=== PATIENT | female | born 1980 | race Caucasian/White ===

== ENCOUNTER → 2022-12-03 09:40 | Outpatient (CLI) | payer OTHER, SELFPAY ==
--- NOTE | ~2022-12-03 | MM_ITS ---
EXAMINATION: MM screening danya BI w socrates HISTORY: Screening TECHNIQUE: Craniocaudal and mediolateral oblique 3-D tomosynthesis images were obtained and synthetic 2-D images were generated. CAD analysis was submitted and interpreted. COMPARISON: No prior mammogram is available for comparison at this institution. BREAST PARENCHYMAL COMPOSITION: There are scattered areas of fibroglandular density. FINDINGS: There are focal asymmetries in the upper inner quadrant of the left breast. There are no joy spicious masses, calcifications or architectural distortion in the right breast to suggest malignancy . IMPRESSION: 1. Left breast asymmetries, upper inner quadrant. 2. Additional mammographic views and possible breast ultrasound are recommended. BI-RADS Category 0: Incomplete: Needs additional imaging evaluation. Reviewed, dictated and finalized at location A. ILE TECH IMPRESSION: 1. Left breast asymmetries, upper inner quadrant. 2. Additional mammographic views and possible breast ultrasound are recommended . BI-RADS Category 0: Incomplete: Needs additional imaging evaluation.
== END ==
PROVIDERS: PCP Physician Assistant; Visit Provider Obstetrics & Gynecology Gynecologic Oncology
DX: Z12.31 Encounter for screening mammogram for malignant neoplasm of breast (principal); N64.89 Other specified disorders of breast
CPT/HCPCS: 77063; 77067

== ENCOUNTER → 2022-12-22 09:39 | Outpatient (CLI) | payer OTHER, SELFPAY ==
--- NOTE | ~2022-12-22 | MMUS_ITS ---
EXAMINATION: MM diagnostic danya LT w socrates, US breast LT limited HISTORY: Left breast mass TECHNIQUE: Additional 3-D tomosynthesis images of the left breast were performed and synthetic 2-D im ages were generated. CAD analysis was submitted and interpreted. High resolution Limited left breast ultrasound was performed. COMPARISON: 12/03/2022 BREAST PARENCHYMAL COMPOSITION: Breast composed of scattered areas of fibroglandular density FINDINGS: MAMMOGRAPHIC FINDINGS: There is a mass in the upper inner quadrant of the left breast which is partially obscured by fibrogl andular tissue. ULTRASOUND: Limited left breast ultrasound: At 9:00, 4 cm from the nipple there is an irregular shaped hypoechoic mass with some angular margins and internal vascularity measuring 7 x 6 x 5 mm. Antiparallel configu ration. There is posterior shadowing. This corresponds to the area of mammographic concern. IMPRESSION: 1. Irregular shaped 7 mm left breast mass at 9:00, 4 cm from the nipple. 2. Ultrasound-guided left breast biopsy recommended. BI-RADS category 4, suspicious findings. Reviewed, dictated and finalized at location A. O SPECIALIST IMPRESSION: 1. Irregular shaped 7 mm left breast mass at 9:00, 4 cm from the nipple. 2. Ultrasound-guided left breast biopsy recommended. BI-RADS category 4, suspicious findings.
== END ==
PROVIDERS: PCP Physician Assistant; Visit Provider Obstetrics & Gynecology Gynecologic Oncology
DX: N63.22 Unspecified lump in the left breast, upper inner quadrant (principal)
CPT/HCPCS: 76642; 77061; 77065; G0279

== ENCOUNTER 2023-01-06 09:38 | Outpatient (CLI) | payer OTHER, SELFPAY ==
--- NOTE | ~2023-01-06 | MMUS_ITS ---
EXAMINATION: US GUIDED NEEDLE BIOPSY DATE: 01/06/2023 11:03 ATOMIZER ASSEMBLER INDICATION: 9:00 irregular hypoechoic solid lesion with angular margins reported on 12/22/2022 limited left breast ultrasound examination TECHNIQUE AND FINDINGS: The risks and potential benefits of the procedure were discussed with the patient, and written inform ed consent was obtained. Timeout procedure was performed. After sterile preparation of the left breas t, 1% lidocaine was utilized for local anesthesia. A 14G spring-loaded biopsy gun needle was advanced to the edge of the region of interest from a media l approach utilizing sonographic guidance. A total of 4 tissue core samples were obtained through th e lesion. An Inrad tissue marker clip was then placed at the biopsy site. Hemostasis was achieved. A sterile bandage was applied. The patient tolerated procedure well and there was no evidence of immediate complication. The patien t was given verbal instructions prior to departing from the department. A two view mammogram was perf ormed to document tissue marker clip placement. The tissue samples were submitted to surgical patholo gy for histologic analysis. IMPRESSION: 1. Successful ultrasound guided biopsy of left 9:00 breast mass with biopsy marker placement. Please refer to pathology report for histologic analysis. Reviewed, dictated and finalized at Location A. Reviewed, dictated and finalized at location A. IZER ASSEMBLER IMPRESSION: 1. Successful ultrasound guided biopsy of left 9:00 breast mass with biopsy ma rker placement. Please refer to pathology report for histologic analysis.
== END 2023-01-06 09:39 | disposition home or self-care (01) ==
LOC: ANHIMG 09:39
PROVIDERS: PCP Physician Assistant; Visit Provider Surgery
DX: R92.8 Other abnormal and inconclusive findings on diagnostic imaging of breast (principal); N63.20 Unspecified lump in the left breast, unspecified quadrant; D24.2 Benign neoplasm of left breast
CPT/HCPCS: 19083; 88305; A4648

== ENCOUNTER → 2023-10-12 11:32 | Outpatient (CLI) | payer OTHER, SELFPAY ==
--- NOTE | ~2023-10-12 | US_ITS ---
EXAMINATION: US transvaginal DATE: 10/12/2023 12:31 INDICATION: Abnormal uterine bleeding Comparison:No prior studies for comparison. TECHNIQUE: Multiple endovaginal sonographic images of the pelvis performed. FINDINGS: The uterus measures 9 x 4 x 4.6 cm. There are uterine fibroids, largest located anteriorly measuring 10 mm. The endometrial complex measures 11 mm. The ovaries are not visualized. No adnexal masses. There is no free fluid in the pelvis. There are n o abnormal masses seen on either side. IMPRESSION: 1. Small uterine fibroids, largest measuring 1 cm anteriorly. Reviewed, dictated and finalized at location L. ER SKATE ASSEMBLER
== END ==
PROVIDERS: PCP Obstetrics & Gynecology Gynecologic Oncology; Visit Provider Obstetrics & Gynecology Gynecologic Oncology
DX: N93.9 Abnormal uterine and vaginal bleeding, unspecified (principal); N95.1 Menopausal and female climacteric states; D25.9 Leiomyoma of uterus, unspecified
CPT/HCPCS: 76830

== ENCOUNTER 2025-05-01 08:19 | Outpatient (CLI) | payer OTHER, SELFPAY ==
--- NOTE | ~2025-05-01 | NM_ITS ---
EXAM: NM gastric emptying study DATE: 05/01/2025 14:04 CDT INDICATION: Gastroesophageal reflux disease TECHNIQUE: A gastric emptying study was performed using the methodology of Cait ALVAREZ, et al. J Nucl Med 2007; 48:568-572. The patient was given a meal consisting of 2 scrambled eggs labeled with 1 mCi Tc-99m sulfur colloid, 2 slices of toast, two packages of jam, and approximately 120 mL of water. Si multaneous anterior and posterior 1-min images of the abdomen were obtained with the patient supine a t multiple time points over a total period of 4 hours. The geometric mean of anterior and posterior v iews was determined, and the percentage retention was calculated for each time point. COMPARISON: None. FINDINGS: Gastric retention of the radiotracer-labeled meal was 76%, 70%, and 40% at the 1-hour, 2-h our, and 4-hour time points, respectively. With this technique, apparent rapid gastric emptying is joy ggested by <30% gastric retention at 1 hour. Delayed gastric emptying is defined by gastric retention of >90% at 1 hour, >60% retention at 2 hours, or >10% retention at 4 hours. IMPRESSION: 1. Delayed gastric emptying. Reviewed, dictated and finalized at location B.
--- OUTSIDE RECORDS SUMMARY | 2025-05-01 08:32 | XMS_ITS | Clinical Summary ---
Author Organization [facility] Address [address] [place], [address] [address] Phone Care Team Providers Care Master Automotive Glass Technician Name Role Phone Nico Rudd Primary Care Provider [phone] Keturah Good APRN, STARTING SHEET TANK OPERATOR Unavailable Medications QUEtiapine (SEROQUEL XR) 200 MG TABLET SR 24 HR Take 200 mg by mouth daily. 07/14/2023 Active omeprazole (PriLOSEC) 40 MG CAPSULE DELAYED RELEASEIndicatio ns:Gastroesophag eal reflux disease, unspecified whether esophagitis present Take 1 Capsule by mouth daily. 90 Capsule 3 07/22/2023 Active sucralfate (CARAFATE) 1 GM TabletIndication s:Gastroesophage al reflux disease, unspecified whether esophagitis present TAKE 1 TABLET BY MOUTH THREE TIMES A DAY 90 Tablet 1 06/12/2024 Active Active Problems No known active problems Social History Tobacco Use Types Packs/Day Years Used Date Smoking Tobacco: Every Day Cigarettes Smokeless Tobacco: Never Tobacco Cessation:Ready to Q uit: No; Counseling Given: Yes Alcohol Use Standard Drinks/Week Comments Yes 0 (1 standard drink = 0.6 oz pur e alcohol) social Sexually Active Control Partners Comments Yes Male Comments Unknown Sex and Gender Information Value Date Recorded Sex Assigned at Not on file Legal Sex Female 3:24 PM CDT Gender Identity Not on file Sexual Orientation Not on file Last Filed Vital Signs Vital Sign Reading Time Taken Comments Blood Pressure 122/78 07/22/2023 1:45 PM CDT Pulse 94 07/22/2023 1:45 PM CDT Temperature 36.6 C (97.8 F) 07/22/2023 1:45 PM CDT Respiratory Rate 16 07/22/2023 1:45 PM CDT Oxygen Saturation 99% 07/22/2023 1:45 PM CDT Inhaled Oxygen Concentration - - Weight 95 kg (209 lb 6.4 oz) 07/22/2023 1:45 PM CDT Height 157.5 cm (5' 2) 07/22/2023 1:45 PM CDT Body Mass Index 38.3 07/22/2023 1:45 PM CDT Plan of Treatment Health Maintenance Due Date Last Done Comments Hepatitis C Virus (HCV) Screening 1978 TdaP Immunization 1978 Hepatitis B Immunization (1 of 3 - 19+ 3-dose series) 1997 Pneumococcal Immunization Co mbined (1 of 2 - PCV) 1997 Pap Smear 1999 Cervical Cancer Screening (CCS) 2008 HPV/Cotest 2008 Discussion re Starting/Frequ ency of Mammograms 2018 Colonoscopy 2023 Colorectal Cancer Screening 2023 Influenza Immunization (#1) 2024 SARS-COV-2 Immunization ( season) 2024 Respiratory Syncytial Virus (RSV) Immunization (Adult) (1 - 1-dose 75+ series) 2053 Meningococcal Immunization (ACWY) Aged Out No longer eligible based on patient's age to complete this topic Rotavirus Immunization Aged Out No lo nger eligible based on patient's age to complete this topic Insurance [facility]ICARE C [facility] [place] [place] Care Teams Master Automotive Glass Technician Relationship Specialty Start Date End Date Nico Rudd, [facility] [address] [place] [address] PCP - General Physician Nursing Home Social Worker 07/19/23 Keutrah Good APRN, STARTING SHEET TANK OPERATOR [address] [place] [address] Nurse Practitioner Advanced Practice Nurse 07/22/23
== END 2025-05-01 08:20 | disposition home or self-care (01) ==
PROVIDERS: PCP Physician Assistant; Visit Provider Nurse Practitioner Family
DX: K21.9 Gastro-esophageal reflux disease without esophagitis (principal); R11.14 Bilious vomiting
CPT/HCPCS: 78264; A9541

== ENCOUNTER 2025-05-29 12:37 | Emergency (ER) | payer OTHER, SELFPAY ==
--- NOTE | ~2025-05-29 | XR_ITS ---
EXAM/PROCEDURE: XR chest 2V - 05/29/2025 15:27 CDT HISTORY: 45 years old Female with balance issues/feeling dizzy TECHNIQUE: Two view(s) of the chest. COMPARISON: None available. FINDINGS: LUNGS/ PLEURA: Scattered areas of bilateral airspace disease. No pneumothorax or pleural effusion. HEART/ MEDIASTINUM: Heart appears normal in size. BONES: No acute osseous abnormality. OTHER: Visualized upper abdomen is unremarkable. IMPRESSION: Bilateral airspace disease can represent pneumonia in appropriate clinical settings. Clinical correla tion is recommended. Short interval follow-up chest radiograph is recommended after appropriate clini hi therapy. Reviewed, dictated and finalized at location A. IMPRESSION: Bilateral airspace disease can represent pneumonia in appropriate clinical sett ings. Clinical correlation is recommended. Short interval follow-up chest radio graph is recommended after appropriate clinical therapy.
--- NOTE | ~2025-05-29 | CT_ITS ---
EXAM: CTA brain carotid - 05/29/2025 14:35 CDT History: 45 years old Female with Balance and vision changes TECHNIQUE: CT scan of the head without contrast. Subsequently CTA of the head and neck with intraveno us contrast was performed. 3-D reconstructed images of cerebral artery circulation were generated on a [id number] workstation. Automatic exposure control was used for this study. CONTRAST: 100 cc of Omnipaque 350 was used for this study COMPARISON: None available. FINDINGS: CT HEAD WITHOUT CONTRAST: BRAIN PARENCHYMA: [place]-white differentiation is maintained.No intra-axial hemorrhage or midline shift . No evidence of intraaxial mass. VENTRICLES/ EXTRA-AXIAL SPACES: No extra-axial hemorrhage or fluid collection. No evidence of extra-a xial mass. No hydrocephalus. CALVARIUM AND SINUSES: No calvarial fracture. The visualized sinuses and mastoid air cells are clear . CTA: Normal branching pattern of the thoracic aorta. Great vessels of the neck are patent. RIGHT ANTERIOR CIRCULATION: Innominate and right common carotid artery is normal in caliber. No significant stenosis at the carotid bifurcation by NASCET criteria. Cervical segment of the internal carotid artery is normal in caliber. Cavernous and supraclinoid segm ents of the internal carotid artery patent. M1 segment and middle cerebral artery bifurcation are unremarkable. A1 segment, anterior communicating artery complex and A2 segment are within normal limits. LEFT ANTERIOR CIRCULATION: Left common carotid artery is normal in caliber. No significant stenosis at the carotid bifurcation by NASCET criteria. Cervical segment of the internal carotid artery is normal in caliber. Cavernous and supraclinoid segm ents of the internal carotid artery patent. M1 segment and middle cerebral artery bifurcation are unremarkable. A1 segment, anterior communicating artery complex and A2 segment are within normal limits. POSTERIOR CIRCULATION: Vertebral arteries are codominant and patent throughout the neck. Intradural vertebral arteries are normal in caliber and terminate as the basilar artery. Basilar artery is normal in caliber. Bilateral P1 segments are hypoplastic, with persistent origin of the posterior cerebral artery from posterior communicating artery. . OTHER: Scattered areas of groundglass/airspace opacities in both lungs, concerning for pneumonia. IMPRESSION: 1. No evidence for acute intracranial hemorrhage or acute ischemic infarct on non-contrast CT. 2. Unremarkable CTA of the head and neck. No evidence of cerebral artery aneurysm, stenosis or mass . 3. Scattered areas of groundglass/airspace opacities in both lungs, compatible with pneumonia. Short -term follow-up chest radiograph is recommended after appropriate clinical therapy. Reviewed, dictated and finalized at location A. IMPRESSION: 1. No evidence for acute intracranial hemorrhage or acute ischemic infarct on non-contrast CT. 2. Unremarkable CTA of the head and neck. No evidence of cerebral artery aneu rysm, stenosis or mass. 3. Scattered areas of groundglass/airspace opacities in both lungs, compatible with pneumonia. Short-term follow-up chest radiograph is recommended after shannan ropriate clinical therapy.
--- OUTSIDE RECORDS SUMMARY | 2025-05-29 12:39 | XMS_ITS | Clinical Summary ---
Author Organization [facility] Address [address], [address] [address] Phone Care Team Providers Care Vegetable Sorter Name Role Phone Nico Rudd Primary Care Provider [phone] Keturah Good APRN, SERVICENOW ADMINISTRATOR DEVELOPER Unavailable Medications QUEtiapine (SEROQUEL XR) 200 MG [...] to complete this topic Insurance MEDICARE C [facility] [place] Care Teams Vegetable Sorter Relationship Specialty Start Date End Date Nico Rudd, [facility] [address] [place] [address] PCP - General Physician Real Estate Paralegal 07/19/23 Keturah Good APRN, SERVICENOW ADMINISTRATOR DEVELOPER [address] [place] [address] Nurse Practitioner Advanced Practice Nurse 07/22/23
[2025-05-29 12:42] VITALS: BP 162/114; PULSE 102; RESP 18; TEMP 36.6; O2SAT 96; O2SAT 99
--- NOTE | 2025-05-29 12:45 | ECG_ITS ---
Test Date: 2025-05-29 12:50:50 Measurements Intervals [place] Rate: 91 P: 53 NC: 179 QRS: 68 QRSD: 82 T: 53 QT: 402 QTc: 497 Interpretive Statements SINUS RHYTHM WITHIN NORMAL LIMITS No previous ECG available for comparison Electronically Signed On 05-30-2025 07:35:57 CDT by Arcadio Ramirez M.D.
[2025-05-29 13:00] LABS: Hematocrit 38.6 % (37.0-47.0); Hemoglobin 12.7 g/dL (12.0-15.0); Immature Granulocyte Percent A 0.5 % (0-0.5); Lymphocytes Absolute Auto 1.39 K/mm3 (0.9-3.2); Mean Corpuscular HGB Conc 32.9 g/dl (32-36); Mean Corpuscular Hemoglobin 31.8 pg (26-34); Mean Corpuscular Volume 96.5 fl (80-100); Nucleated Red Blood Cells Absolute Auto 0.000 K/mm3 (0.0-0.012); Nucleated Red Blood Cells Perc 0.0 % (0.0-0.2); Platelet Count Result 275 k/mm3 (150-375); Red Blood Count 4.00 M/mm3 (4.2-5.4); White Blood Count 8.7 K/mm3 (4.5-10.0)
[2025-05-29 13:13] VITALS: BP 161/100; PULSE 97; RESP 20; O2SAT 99
[2025-05-29 13:16] LABS: Alanine Aminotransferase 104 U/L (6-35); Albumin Level 4.3 g/dL (3.5-5.1); Alkaline Phosphatase 97 U/L (38-126); Anion Gap 12 mmol/L (4-12); Aspartate Amino Transferase 121 U/L (14-36); Bilirubin,Total 0.6 mg/dL (0.2-1.3); Blood Urea Nitrogen 8 mg/dL (7-17); Calcium 9.4 mg/dL (8.4-10.2); Carbon Dioxide 25 mmol/L (22-30); Chloride 99 mmol/L (98-107); Estimated CRCL calculation 124 ml/min; Estimated Glomerular Filt Rate > 60; Glucose 122 mg/dL (65-110); Potassium 3.4 mmol/L (3.4-5.0); Sodium 136 mmol/L (137-145); Total Protein 7.9 g/dL (6.3-8.2)
[2025-05-29 13:24] LABS: INR 1.1; Prothrombin Time 13.7 Seconds (11.1-14.7)
[2025-05-29 13:25] LABS: Partial Thromboplastin Time 27.1 Seconds (22.3-36.8)
[2025-05-29 13:27] LABS: Troponin I < 0.012 ng/mL (0.000-0.034)
[2025-05-29 14:07] VITALS: BP 144/96; PULSE 90; RESP 18; TEMP 36.9; O2SAT 99
--- OUTSIDE RECORDS SUMMARY | 2025-05-29 14:46 | XMS_ITS | Clinical Summary ---
Author Organization [facility] Address [address], [address] [address] Phone Care Team Providers Care Warehouse Logistics Coordinator Name Role Phone Nico Rudd Primary Care Provider [phone] Keturah Good APRN, FAGOTING MACHINE OPERATOR Unavailable Medications QUEtiapine (SEROQUEL XR) 200 [...] to complete this topic Insurance [facility]IC[facility] [place] Care Teams Warehouse Logistics Coordinator Relationship Specialty Start Date End Date Nico Rudd, [facility] [address] [place] [address] PCP - General Physician Operations Intelligence 07/19/23 Keturah Good APRN, FAGOTING MACHINE OPERATOR [address] [place] [address] Nurse Practitioner Advanced Practice Nurse 07/22/23
[2025-05-29 15:01] VITALS: BP 143/97; PULSE 67; RESP 18; TEMP 36.6; O2SAT 98
--- NOTE | 2025-05-29 15:27 | ED_ITS ---
HPI - General Adult General Chief complaint: Neuro Symptoms/Deficit Stated complaint: sent by PCP, possible CVA; shaking Time Seen by Provider: 05/29/25 14:26 History of Present Illness HPI narrative: 45-year-old female present to the emergency department for evaluation for increased psychomotor agitation and twitching. Patient does take Seroquel, hydroxyzine and clomipramine. Patient began having an anxiety attack on 05/22 and did take increase hydroxyzine. Patient states she has had increased psychomotor agitation and shakiness Related Data Home Medications ?Medication ?Instructions ?Recorded ?Confirmed ?Last Taken ?Type quetiapine 200 mg tablet (Seroquel) 200 mg PO QHS 12/25/22 04/02/25 Unknown History prazosin 2 mg capsule 2 mg PO QHS 12/29/22 04/02/25 Unknown History Allergies Allergy/AdvReac Type Severity Reaction Status Date / Time No Known Allergies Allergy Verified 05/29/25 12:46 Review of Systems 2 Review of Systems: All systems reviewed & are unremarkable except as noted in HPI and below PMFSH Surgical History Surgical History H/O tubal ligation History of tonsillectomy History of mandibular surgery Elective History of surgery on arm Family History Family History Father Renal failure Diabetes mellitus Heart disease Mother Diabetes mellitus Heart disease Sibling Heart disease Unknown Cerebrovascular accident Hypertension Breast cancer Lung cancer Kidney disease Grandparent Breast cancer Social History Social History Social History: caffeine use: drinks tea & soda daily Smoking packs per day: 1 Smoking cigarettes per day: 20.0 Years smoked: 26 Smoking pack-years: 26.00 Smoking status: Current every day smoker Tobacco type: cigarettes Alcohol intake: current Alcohol use details: whiskey & vodka daily Additional living arrangements comments: Additional occupation/education comments: homemaker Exam 2 Narrative: APPEARANCE: Well appearing, no pain, no distress, well-nourished. HEAD: normocephalic, atraumatic. EYES: PERRLA/EOMI, conjunctivae clear. NOSE: Normal no drainage EARS:TMS clear with good light reflex. THROAT: Pharynx clear, no exudate. NECK: Supple. No adenopathy, no masses. RESPIRATORY: Airway patent, respirations nonlabored. Clear to auscultation bilaterally, no rales, rhonchi, wheezing. CARDIOVASCULAR: Regular rate and rhythm without murmurs rubs or gallops. ABDOMINAL: Soft, nontender, nondistended, normal bowel sounds MUSCULOSKELETAL: Moves all extremities. Strength/ROM intact, No edema, No calf tenderness. NEURO: Alert. Mild tremor Course Vital Signs Vital signs: Vital Signs Temperature 97.8 F 05/29/25 12:42 Pulse Rate 102 H 05/29/25 12:42 Respiratory Rate 18 05/29/25 12:42 Blood Pressure 162/114 H 05/29/25 12:42 Pulse Oximetry 99 05/29/25 12:42 Oxygen Delivery Room Air 05/29/25 12:42 Temperature 97.8 F 05/29/25 15:01 Pulse Rate 90 05/29/25 17:01 Respiratory Rate 16 05/29/25 17:01 Blood Pressure 160/91 H 05/29/25 17:01 Pulse Oximetry 99 05/29/25 17:01 Oxygen Delivery Room Air 05/29/25 12:42 Medical Decision Making [facility] Narrative Medical decision making narrative: 45-year-old female presents emergency department for evaluation for increased psychomotor agitation. Patient is currently afebrile with no leukocytosis and hemoglobin of 12.7. Patient has an INR of 1.0 with no significant abnormalities on her CMP with a normal BUN and creatinine. Patient has no elevation of her CK troponin is negative. Patient has no acute abnormalities on her chest x-ray CTA head neck are negative. Patient did have some minor hyper reflexia her exam but this was improved with a L of lactated Ringer's and a single dose of Ativan. Low concern for serotonin syndrome at this time. Patient is not flushed she has no altered mental status, patient is not tachycardic. Patient is not hyperthermic. Patient was advised does close follow-up with her primary care physician. Patient was provided some additional p.o. Ativan Differential Diagnosis Differential Diagnosis: Tremor, certain syndrome, anxiety, dehydration Vital Signs Vital Signs: Vital Signs Temperature 97.8 F 05/29/25 12:42 Pulse Rate 102 H 05/29/25 12:42 Respiratory Rate 18 05/29/25 12:42 Blood Pressure 162/114 H 05/29/25 12:42 Pulse Oximetry 99 05/29/25 12:42 Oxygen Delivery Room Air 05/29/25 12:42 Temperature 97.8 F 05/29/25 15:01 Pulse Rate 90 05/29/25 17:01 Respiratory Rate 16 05/29/25 17:01 Blood Pressure 160/91 H 05/29/25 17:01 Pulse Oximetry 99 05/29/25 17:01 Oxygen Delivery Room Air 05/29/25 12:42 Lab Data Lab results reviewed: Yes I reviewed the patient's lab results. 05/29/25 12:54 05/29/25 12:54 Labs: Lab Results 05/29/25 05/29/25 Range/Units 12:49 12:54 WBC 8.7 (4.5-10.0) K/mm3 RBC 4.00 L (4.2-5.4) M/mm3 Hgb 12.7 (12.0-15.0) g/dL Hct 38.6 (37.0-47.0) % MCV 96.5 (80-100) fl MCH 31.8 (26-34) pg MCHC 32.9 (32-36) g/dl RDW 17.1 H (11.5-14.5) % Plt Count 275 (150-375) k/mm3 MPV 9.7 (7.4-10.4) fl Immature Gran % (Auto) 0.5 (0-0.5) % Neut % (Auto) 73.9 H (45.5-73.1) % Lymph % (Auto) 15.9 L (18.3-44.2) % [place] % (Auto) 8.7 H (2.6-8.5) % Eos % (Auto) 0.7 (0-4.4) % Baso % (Auto) 0.3 (0.2-1.2) % Lymph # (Auto) 1.39 (0.9-3.2) K/mm3 [place] # (Auto) 0.8 H (0.1-0.6) K/mm3 Eos # (Auto) 0.1 (0-0.3) K/mm3 Baso # (Auto) 0.0 (0.0-0.1) K/mm3 Abs Immat Gran (auto) 0.04 H (0.00-0.031) K/mm3 Absolute Neuts (auto) 6.5 (1.3-6.7) K/mm3 Absolute Nucleated RBC 0.000 (0.0-0.012) K/mm3 Nucleated RBC % 0.0 (0.0-0.2) % PT 13.7 (11.1-14.7) Seconds INR 1.1 APTT 27.1 (22.3-36.8) Seconds Sodium 136 L (137-145) mmol/L Potassium 3.4 (3.4-5.0) mmol/L Chloride 99 (98-107) mmol/L Carbon Dioxide 25 (22-30) mmol/L Anion Gap 12 (4-12) mmol/L BUN 8 (7-17) mg/dL Creatinine 0.51 L (0.7-1.0) mg/dL Estim Creat Clear Calc 124 ml/min Estimated GFR > 60 (59 - ) Glucose 122 H (65-110) mg/dL POC Capillary Glucose 125 H (65-105) mg/dl Calcium 9.4 (8.4-10.2) mg/dL Magnesium 1.8 (1.6-2.3) mg/dL Total Bilirubin 0.6 (0.2-1.3) mg/dL AST 121 H (14-36) U/L ALT 104 H (6-35) U/L Alkaline Phosphatase 97 (38-126) U/L Total Creatine Kinase 50 (30-135) U/L Troponin I < 0.012 (0.000-0.034) ng/mL Total Protein 7.9 (6.3-8.2) g/dL Albumin 4.3 (3.5-5.1) g/dL Imaging Data Radiologist's impression: Impressions Head/Neck CTA 05/29/25 15:06 IMPRESSION: 1. No evidence for acute intracranial hemorrhage or acute ischemic infarct on non-contrast CT. 2. Unremarkable CTA of the head and neck. No evidence of cerebral artery aneurysm, stenosis or mass. 3. Scattered areas of groundglass/airspace opacities in both lungs, compatible with pneumonia. Short-term follow-up chest radiograph is recommended after appropriate clinical therapy. Chest X-Ray 05/29/25 15:41 IMPRESSION: Bilateral airspace disease can represent pneumonia in appropriate clinical settings. Clinical correlation is recommended. Short interval follow-up chest radiograph is recommended after appropriate clinical therapy. Discharge Plan Discharge Clinical Impression: Tremor Patient Disposition: Home Condition: Stable Instructions: Antibiotic Form Additional Instructions: Drink plenty of fluids, Ativan as needed for increased anxiety or twitching. Take your home medications as directed. Have close follow-up with your primary care physician. If you have any worsening symptoms then please call or return to the emergency department. Patient Language: Czech Prescriptions: New lorazepam [Ativan] 0.5 mg tablet 0.5 mg PO TID PRN (Reason: anxiety) Qty: 14 0RF No Action ondansetron 4 mg tablet,disintegrating 4 mg PO Q8H PRN (Reason: nausea and vomiting) Qty: 30 3RF omeprazole 40 mg capsule,delayed release(DR/EC) 40 mg PO BID Qty: 60 2RF prazosin 2 mg capsule 2 mg PO QHS quetiapine [Seroquel] 200 mg tablet 200 mg PO QHS Follow-up/Referrals: Blaire,CASSIE Perez [Primary Care Provider] -
[2025-05-29 15:35] LABS: Creatine Kinase 50 U/L (30-135); Magnesium 1.8 mg/dL (1.6-2.3)
[2025-05-29] MEDS: LORazepam INJ (*CRX) 2 MG/ML VIAL 1 MG IV PUSH (15:35)
[2025-05-29] MEDS: LACTATED RINGERS 1,000 ML 999 ML IV CONT (15:36)
[2025-05-29 17:01] VITALS: BP 160/91; PULSE 90; RESP 16; O2SAT 99
== END 2025-05-29 17:04 | disposition home or self-care (01) ==
PROVIDERS: Emergency Provider Emergency Medicine; PCP Physician Assistant
DX: R25.1 Tremor, unspecified (principal); F17.210 Nicotine dependence, cigarettes, uncomplicated
CPT/HCPCS: 36415; 70496; 70498; 71046; 80053; 82550; 82948; 83735; 84484; 85025; 85610; 85730; 93005; 96361; 96374; 99284; J2060; J7120; Q9967

== ENCOUNTER 2025-06-27 03:22 | Day surgery (SDC) | payer OTHER, SELFPAY ==
[2025-06-11 13:40] VITALS: BMI 40.3
--- OUTSIDE RECORDS SUMMARY | 2025-06-27 03:25 | XMS_ITS | Clinical Summary ---
Author Organization [facility] Address [address] [place], [address] [address] Phone Care Team Providers Care Cardiovascular Tech Name Role Phone Nico Rudd Primary Care Provider [phone] Keturah Good APRN, GEOGRAPHY FACULTY MEMBER Unavailable Medications QUEtiapine (SEROQUEL XR) 200 MG [...] Comments Hepatitis C Virus (HCV) Screening 1978 Mammogram 1978 TdaP Immunization 1978 Hepatitis B Immunization (1 of 3 - 19+ 3-dose series) 1997 Pneumococcal Immunization Co mbined (1 of 2 - PCV) 1997 Pap Smear 1999 Cervical Cancer Screening (CCS) 2008 HPV/Cotest 2008 Discussion re Starting/Frequ ency of Mammograms 2018 Cologuard 2023 Colonoscopy 2023 Colorectal Cancer Screening 2023 Immunochemical Fecal Occult Blood 2023 SARS-COV-2 Immunization ( season) 2024 Influenza Immunization (#1) 2025 Respiratory Syncytial Virus (RSV) Immunization (Adult) (1 - 1-dose 75+ series) 2053 Human Papillomavirus (HPV) Immunization Aged Out No longer eligible b ased on patient's age to complete this topic Meningococcal Immunization (ACWY) Aged Out No longer eligible based on patient's age to complete this topic Rotavirus Immunization Aged Out No lo nger eligible based on patient's age to complete this topic Insurance [facility] [place] Care Teams Cardiovascular Tech Relationship Specialty Start Date End Date Nico Rudd PAC [address] [place] [address] PCP - General Physician Park Guide 07/19/23 Keturah Good APRN, GEOGRAPHY FACULTY MEMBER [address] [place] [address] Nurse Practitioner Advanced Practice Nurse 07/22/23
--- NOTE | 2025-06-27 07:49 | P.PNAN_ITS ---
Anes - Initial Pre Proc Eval Procedure: Operation Date: 06/27/25 13:00 Proposed Procedures p Esophagogastroduodenoscopy&Screen Colon - Alberto Rausch MD Date/Time: 06/27/25 07:49 Surgeon: Alberto Rausch MD Pre Op Diagnosis: Encounter for screening for malignant neoplasm of Patient Data Age: 45 Gender: F Height: 1.57 m Weight: 100 kg Allergies Allergy/AdvReac Type Severity Reaction Status Date / Time No Known Allergies Allergy Verified 06/27/25 12:01 Home Medications ?Medication ?Instructions ?Recorded ?Confirmed ?Type quetiapine 200 mg tablet (Seroquel) 200 mg PO QHS 12/25/22 06/27/25 History prazosin 2 mg capsule 2 mg PO QHS 12/29/22 06/27/25 History omeprazole 40 mg capsule,delayed 40 mg PO BID #60 caps 04/02/25 06/27/25 Rx release ondansetron 4 mg disintegrating 4 mg PO Q8H PRN nausea and 04/02/25 06/11/25 Rx tablet vomiting #30 tabs lorazepam 0.5 mg tablet (Ativan) 0.5 mg PO TID PRN anxiety #14 tabs 05/29/25 06/11/25 Rx calcium phosphate,dibasic 77 1 tablet PO WEEKLY 06/11/25 06/11/25 History mg-vitamin D3 400 unit tablet cetirizine 10 mg tablet (24Hour 5 mg PO DAILY PRN allergy symptoms 06/11/25 06/11/25 History Allergy) Patient hx anesthesia problems: none Family hx anesthesia problems: none Results Review: All pre-operative results and documents have been reviewed as part of the pre- operative evaluation. [facility] Past Medical History Medical History (Updated 06/27/25 @ 07:49 by Dilshad Braun DO) PTSD (post-traumatic stress disorder) Bipolar disorder GERD (gastroesophageal reflux disease) Anxiety Surgical History Surgical History H/O tubal ligation History of tonsillectomy History of mandibular surgery Elective History of surgery on arm Family History Family History Father Renal failure Diabetes mellitus Heart disease Mother Diabetes mellitus Heart disease Sibling Heart disease Unknown Cerebrovascular accident Hypertension Breast cancer Lung cancer Kidney disease Grandparent Breast cancer Social History Social History Social History: caffeine use: drinks tea & soda daily Smoking packs per day: 1 Smoking cigarettes per day: 20.0 Years smoked: 26 Smoking pack-years: 26.00 Smoking status: Current every day smoker Tobacco type: cigarettes Alcohol intake: current Alcohol use details: whiskey & vodka daily Substance use: never Substance use type: does not use Additional living arrangements comments: Additional occupation/education comments: homemaker [employer] Final PreProcedure Day of Procedure 06/27/25 07:49 Patient weight: morbidly obese Heart: regular rate and rhythm Lungs: clear to auscultation Airway: Mallampati scale class III Neurological: alert and oriented Last oral intake: >/= 8 hours ASA classification: III Emergent: no Anesthetic plan: proceed Anesthesia type and monitoring: general GIVS and standard monitoring Results Review: All pre-operative results and documents have been reviewed as part of the pre- operative evaluation. Informed Consent: The patient's anesthetic plan and its attendant risks and benefits were discussed with the patient/family/POA. Questions were solicited and answers provided to the satisfaction of the patient/family/POA.
[2025-06-27 12:02] VITALS: BP 149/96; PULSE 100; RESP 20; TEMP 36.4; O2SAT 100; BMI 40.1
[2025-06-27] MEDS: LACTATED RINGERS 1,000 ML 150 ML IV CONT (12:05)
--- NOTE | 2025-06-27 13:03 | PM.HPGS ---
History of Present Illness History of Present Illness Consent: Risks, benefits, and alternatives have been discussed and questions answered. Patient agrees to proceed with procedure. Chief complaint: Encounter for screening for malignant neoplasm of Narrative: Trish Flores is a 45 year old female here for first time having scopes, h/o gerd on ppi, also needs screening colonoscopy Review of Systems Review of Systems: All systems reviewed & are unremarkable except as noted in HPI and below PMFSH Past Medical History Medical History (Updated 06/27/25 @ 07:49 by Dilsahd Braun DO) PTSD (post-traumatic stress disorder) Bipolar disorder GERD (gastroesophageal reflux disease) Anxiety Surgical History Surgical History H/O tubal ligation History of tonsillectomy History of mandibular surgery Elective History of surgery on arm Family History Family History Father Renal failure Diabetes mellitus Heart disease Mother Diabetes mellitus Heart disease Sibling Heart disease Unknown Cerebrovascular accident Hypertension Breast cancer Lung cancer Kidney disease Grandparent Breast cancer Social History Social History Social History: caffeine use: drinks tea & soda daily Smoking packs per day: 1 Smoking cigarettes per day: 20.0 Years smoked: 26 Smoking pack-years: 26.00 Smoking status: Current every day smoker Tobacco type: cigarettes Alcohol intake: current Alcohol use details: whiskey & vodka daily Substance use: never Substance use type: does not use Additional living arrangements comments: Additional occupation/education comments: homemaker Meds Home Medications and Allergies Home Medications ?Medication ?Instructions ?Recorded ?Confirmed ?Type quetiapine 200 mg tablet (Seroquel) 200 mg PO QHS 12/25/22 06/27/25 History prazosin 2 mg capsule 2 mg PO QHS 12/29/22 06/27/25 History omeprazole 40 mg capsule,delayed 40 mg PO BID #60 caps 04/02/25 06/27/25 Rx release ondansetron 4 mg disintegrating 4 mg PO Q8H PRN nausea and 04/02/25 06/11/25 Rx tablet vomiting #30 tabs lorazepam 0.5 mg tablet (Ativan) 0.5 mg PO TID PRN anxiety #14 tabs 05/29/25 06/11/25 Rx calcium phosphate,dibasic 77 1 tablet PO WEEKLY 06/11/25 06/11/25 History mg-vitamin D3 400 unit tablet cetirizine 10 mg tablet (24Hour 5 mg PO DAILY PRN allergy symptoms 06/11/25 06/11/25 History Allergy) Allergies Allergy/AdvReac Type Severity Reaction Status Date / Time No Known Allergies Allergy Verified 06/27/25 12:01 Vital Signs Vital Signs - 24 hr 06/27/25 12:02 Temperature 97.6 F Pulse Rate 100 Respiratory Rate 20 Blood Pressure 149/96 H Pulse Oximetry 100 Oxygen Delivery Room Air Exam Const: General: comfortable and no acute distress HENMT: Face/Nose/Sinus: Normal nares present Eyes: General: appearance normal, both eyes and all related structures Neck: Neck: no JVD Resp: Auscultation: clear to auscultation bilaterally Cardio: Rate: regular rate Rhythm: regular rhythm GI: Inspection: non-distended GI Palp: Yes Soft to palpation Skin: General skin exam: normal color Neuro: Speech: normal speech Extrem: General: normal to inspection Psych: Mental Status: mental status grossly normal Assessment and Plan Assessment and plan (1) Colon cancer screening: Code(s): Z12.11 - Encounter for screening for malignant neoplasm of colon Status: Acute Assessment and Plan: colonoscopy (2) GERD (gastroesophageal reflux disease): Qualifiers: Esophagitis presence: esophagitis presence not specified Qualified Code(s): K21.9 - Gastro-esophageal reflux disease without esophagitis Code(s): K21.9 - Gastro-esophageal reflux disease without esophagitis Status: Acute Assessment and Plan: egd with bx
--- NOTE | 2025-06-27 13:40 | S_PTH ---
PATIENT: Trish Flores LOC: [facility]#:[id number] AGE/SX: 45/F ROOM: RE06/27/[address]: Alberto Rausch MD : 1980 BED: DIS: 06/27/2025 SPEC #: [id number] RECD: 06/27/25 14:19 STATUS: PASHA REQ #: [id number] LILIANA: 06/27/25 13:[address]: Alberto Rausch DEPT: [facility] Surgical RECD BY: Oanh Weiner ENTERED: 06/27/25 14:19 SP TYPE: Surgical OTHR DR: Nico Rudd, PA Tissues: A - Gastric Biopsy B - Colon Polypectomy Procedures: Hematoxylin and Eosin Stain Gross and Microscopic Level 4
[2025-06-27 13:41] VITALS: BP 124/91; PULSE 90; RESP 24; O2SAT 99
[2025-06-27 13:51] VITALS: BP 105/82; PULSE 86; RESP 24; O2SAT 99
[2025-06-27 14:01] VITALS: BP 124/83; PULSE 83; RESP 20; O2SAT 100
== END 2025-06-27 14:15 | disposition home or self-care (01) ==
PROVIDERS: PCP Physician Assistant; Visit Provider Internal Medicine Gastroenterology
PROC: 0DJ08ZZ Inspection of Upper Intestinal Tract, Via Natural or Artificial Opening Endoscopic (ICD-10-PCS; CPT 45378; principal; 2025-06-27 13:00)
DX: Z12.11 Encounter for screening for malignant neoplasm of colon (principal); K63.5 Polyp of colon; K21.9 Gastro-esophageal reflux disease without esophagitis; K44.9 Diaphragmatic hernia without obstruction or gangrene; F43.10 Post-traumatic stress disorder, unspecified; F31.9 Bipolar disorder, unspecified; F41.9 Anxiety disorder, unspecified; F17.210 Nicotine dependence, cigarettes, uncomplicated; E66.01 Morbid (severe) obesity due to excess calories; Z68.41 Body mass index [BMI] 40.0-44.9, adult; Z98.890 Other specified postprocedural states; Z98.51 Tubal ligation status; Z80.3 Family history of malignant neoplasm of breast; Z80.1 Family history of malignant neoplasm of trachea, bronchus and lung; Z82.49 Family history of ischemic heart disease and other diseases of the circulatory system
CPT/HCPCS: 43239; 45385; 88305; J2003; J2704; J7120